=== PATIENT | male | born 1950 | race Caucasian/White ===

== ENCOUNTER 2024-03-02 08:36 | Day surgery (SDC) | payer OTHER ==
[2024-02-27 12:30] VITALS: BMI 29.7
[2024-03-02] MEDS ORDERED: Lidocaine 1% PF 5 ML VIAL ONE (11:20)
[2024-03-02] MEDS ORDERED: PROPOFOL 40 ML ONE (11:20)
[2024-03-02] MEDS ORDERED: PROPOFOL 20 ML ONE (11:43)
== END 2024-03-02 12:40 | disposition home or self-care (01) ==
LOC: CSHSDC 08:36
PROVIDERS: ATTEND Internal Medicine Gastroenterology
PROC: 0DJD8ZZ Inspection of Lower Intestinal Tract, Via Natural or Artificial Opening Endoscopic (ICD-10-PCS; principal; 2024-03-02)
DX: Z12.11 Encounter for screening for malignant neoplasm of colon (principal); J44.9 Chronic obstructive pulmonary disease, unspecified; E78.00 Pure hypercholesterolemia, unspecified; Z79.51 Long term (current) use of inhaled steroids; Z87.891 Personal history of nicotine dependence; Z79.899 Other long term (current) drug therapy
CPT/HCPCS: J2704